=== PATIENT | male | born 1945 | race Caucasian/White ===

== ENCOUNTER 2019-08-19 14:44 | Inpatient (IN) | payer OTHER, MEDICARE ==
[~2019-08-19] VITALS: Ht 177.8 cm; Wt 101.8 kg
[~2019-08-19 14:44] MED LIST: ACET500 PO; ALBU90OI INH; ASPI325 PO; Aspir-Trin325 MG PO; BENZ100A PO; BUDE200IP INH; BUSP10 PO; CALCAVITD PO; CYAN1000; CYAN500 SL; DOC250 PO; ESOM20 PO; FEXO180; FEXO180 PO; FISH1000 PO; FLUO10 PO; FLUO20 PO; FLUT.05NI; GLYB5; GUAI600T33 PO; LEVFLO500 PO; LISI5; MOMENI; MULVITMINF; MULVITMINF PO; OSTERA TABLET1 EACH PO; OXYC5 PO; PHENO60; TRAZ100; TRAZ100 PO
[2019-08-19 15:17] LABS: BASOPHILS ABSOLUTE AUTO 0.05 K/mm3 (0.00-0.23); BASOPHILS PERCENT AUTO 0 % (0-2); EOSINOPHILS ABSOLUTE AUTO 0.13 K/mm3 (0.00-0.68); EOSINOPHILS PERCENT AUTO 1 % (0-6); Hematocrit 40.4 % (37.0-53.0); Hemoglobin 12.6 g/dL (13.5-17.5); IMMATURE GRAN ABSOLUTE AUTO 0.08 K/mm3 (0.00-0.10); IMMATURE GRAN PERCENT AUTO 1 % (0-1); LYMPHOCYTES PERCENT AUTO 14 % (21-46); MONOCYTES ABSOLUTE AUTO 1.15 K/mm3 (0.16-1.47); MONOCYTES PERCENT AUTO 10 % (4-13); Mean Corpuscular HGB 29.6 pg (26.0-34.0); Mean Corpuscular HGB Conc 31.2 g/dL (31.5-36.5); Mean Corpuscular Volume 95 fL (80-100); Mean Platelet Volume 9.3 fL (9.1-12.4); NEUTROPHILS ABSOLUTE AUTO 9.04 K/mm3 (1.96-9.15); NEUTROPHILS PERCENT AUTO 74 % (41-73); Platelet Count 400 K/mm3 (150-400); RDW Coefficient Variation 12.6 % (11.7-14.2); RDW Standard Deviation 44.2 fL (35.1-46.3); Red Blood Cell Count 4.25 M/mm3 (4.30-5.90); White Blood Cell Count 12.15 K/mm3 (4.00-11.30)
[2019-08-19 15:23] LABS: Source, Urine Clean Catch
[2019-08-19 15:30] LABS: Bilirubin, Urine Neg (Neg); Blood, Urine 1+ (Neg); Glucose Qualitative, Urine Neg (Neg); Ketones, Urine Neg (Neg); Leukocyte Esterase, Urine 1+ (Neg); Nitrite, Urine Neg (Neg); Protein, Urine 2+ (Neg); Urobilinogen, Urine NORM (Normal)
[2019-08-19 15:33] LABS: Alanine Aminotransfer (ALT/SGP 22 U/L (12-78); Albumin, Blood 2.9 g/dL (3.4-5.0); Albumin/Globulin Ratio 0.6 (0.8-1.8); Alk Phos 113 U/L (50-136); Anion Gap 8 mmol/L (6-16); Aspartate Aminotrans (AST/SGOT 25 U/L (12-37); Bilirubin, Total 0.3 mg/dL (0.1-1.0); Blood Urea Nitrogen 12 mg/dL (8-24); Bun/Creatinine Ratio 9.8 (12.0-20.0); CO2, Blood 23 mmol/L (21-32); Calcium, Blood 9.3 mg/dL (8.5-10.1); Chloride, Blood 103 mmol/L (98-108); Creatinine, Blood 1.23 mg/dL (0.60-1.20); Glomerular Filtration Rate >60 (60-); Glucose, Blood 101 mg/dL (70-99); Potassium, Blood 4.6 mmol/L (3.5-5.5); Sodium, Blood 134 mmol/L (136-145); Total Protein, Blood 7.9 g/dL (6.4-8.2)
[2019-08-19 15:35] LABS: Appearance, Urine Clear (Clear); Color, Urine Yellow (P-Yellow)
[2019-08-19 15:36] LABS: Bacteria Few /hpf; Calcium Oxalate Crystals Few /hpf; Red Blood Cells, Urine 0-2 /hpf (0-2); Squamous Epithelial Cells Few /hpf (Few)
[2019-08-19] MEDS ORDERED: BACTRIM DS TAB1 EACH PO (16:11)
[2019-08-19] MEDS ORDERED: CEFU500T30 PO (16:11)
[2019-08-19] MEDS ORDERED: Lipitor20 MG PO (16:14)
[2019-08-19] MEDS ORDERED: ELIQUIS5 M2 PO (16:14)
[2019-08-19] MEDS ORDERED: Vitamin D2000 UNIT PO (16:15)
[2019-08-19] MEDS ORDERED: ESOM20 PO (16:15)
[2019-08-19] MEDS ORDERED: B-122500 MCG SL (16:15)
[2019-08-19] MEDS ORDERED: Buspirone HCl15 MG PO (16:15)
[2019-08-19] MEDS ORDERED: Prozac20 MG PO (16:16)
[2019-08-19] MEDS ORDERED: Flonase 0.05% N16 GM (16:16)
[2019-08-19] MEDS ORDERED: FERSU300 PO (16:16)
[2019-08-19] MEDS ORDERED: METO25 PO (16:16)
[2019-08-19] MEDS ORDERED: MULTIPLE VITAM1 EACH PO (16:17)
[2019-08-19] MEDS ORDERED: ALBU90OI INH (16:17)
[2019-08-19] MEDS ORDERED: Nortriptyline H10 MG PO (16:17)
[2019-08-19] MEDS ORDERED: TRAZ100 PO (16:17)
[2019-08-19] MEDS ORDERED: HYDR1TAB94 PO (16:18)
[2019-08-19] MEDS ORDERED: ALLEGRA ALLERG180 MG PO (16:18)
[2019-08-19] MEDS ORDERED: Fiorinal Capsu1 EACH PO (16:18)
[2019-08-19] MEDS ORDERED: Hydrocortiso453.6 G1 (18:14)
[2019-08-20 05:03] LABS: BASOPHILS ABSOLUTE AUTO 0.04 K/mm3 (0.00-0.23); BASOPHILS PERCENT AUTO 0 % (0-2); EOSINOPHILS ABSOLUTE AUTO 0.24 K/mm3 (0.00-0.68); EOSINOPHILS PERCENT AUTO 2 % (0-6); Hematocrit 36.8 % (37.0-53.0); Hemoglobin 11.3 g/dL (13.5-17.5); IMMATURE GRAN ABSOLUTE AUTO 0.03 K/mm3 (0.00-0.10); IMMATURE GRAN PERCENT AUTO 0 % (0-1); LYMPHOCYTES ABSOLUTE AUTO 1.53 K/mm3 (0.84-5.20); LYMPHOCYTES PERCENT AUTO 16 % (21-46); MONOCYTES ABSOLUTE AUTO 1.02 K/mm3 (0.16-1.47); MONOCYTES PERCENT AUTO 10 % (4-13); Mean Corpuscular HGB 30.8 pg (26.0-34.0); Mean Corpuscular HGB Conc 30.7 g/dL (31.5-36.5); Mean Platelet Volume 9.7 fL (9.1-12.4); NEUTROPHILS ABSOLUTE AUTO 7.04 K/mm3 (1.96-9.15); NEUTROPHILS PERCENT AUTO 71 % (41-73); Platelet Count 306 K/mm3 (150-400); RDW Coefficient Variation 12.6 % (11.7-14.2); RDW Standard Deviation 46.9 fL (35.1-46.3); Red Blood Cell Count 3.67 M/mm3 (4.30-5.90)
[2019-08-20 05:04] LABS: Mean Corpuscular Volume 100 fL (80-100)
--- NOTE | 2019-08-20 05:10 | NUR ---
ASSISTANT CENTER DIRECTOR SUMMARY NEW ADMIT FROM THE ED TONIGHT. PT AAOX4 AND INDEPENDENT IN ROOM. ADMITTED FOR INFECTED SURGICAL INCISION. INCISION ALONG WAISTLINE FROM HIP TO HIP. RED AND SWOLLEN MAINLY ON EACH END OF INCISION ON THE HIPS. PHOTOS PLACED IN CHART. PT FINISHED SEPSIS NS BOLUSES AND IS NOW ON NS AT 100 ML/HR WELL CEFEPIME AND VANCO IV. PT NPO SINCE MIDNIGHT IN PREP FOR POSSIBLE PROCEDURE LATER TODAY BY DR JOSEPH. TELEMETRY IN PLACE, AFIB WITH RATE BETWEEN 90-100'S. PT HAS HX OF AFIB AND IS ON ELIQUIS. VSS, WILL CONTINUE TO MONITOR.
[2019-08-20 05:24] LABS: Percent Saturation 16.8 % (20.0-50.0)
[2019-08-20 05:26] LABS: Alanine Aminotransfer (ALT/SGP 24 U/L (12-78); Albumin, Blood 2.4 g/dL (3.4-5.0); Albumin/Globulin Ratio 0.6 (0.8-1.8); Alk Phos 89 U/L (50-136); Anion Gap 6 mmol/L (6-16); Aspartate Aminotrans (AST/SGOT 26 U/L (12-37); Bilirubin, Total 0.3 mg/dL (0.1-1.0); Blood Urea Nitrogen 10 mg/dL (8-24); Bun/Creatinine Ratio 9.9 (12.0-20.0); CO2, Blood 20 mmol/L (21-32); Calcium, Blood 8.4 mg/dL (8.5-10.1); Chloride, Blood 111 mmol/L (98-108); Creatinine, Blood 1.01 mg/dL (0.60-1.20); Globulin, Blood 4.2 g/dL (2.2-4.0); Glomerular Filtration Rate >60 (60-); Glucose, Blood 76 mg/dL (70-99); Magnesium, Blood 2.3 mg/dL (1.6-2.4); Potassium, Blood 4.7 mmol/L (3.5-5.5); Sodium, Blood 137 mmol/L (136-145); Total Protein, Blood 6.6 g/dL (6.4-8.2)
--- NOTE | 2019-08-20 18:04 | NUR ---
SHIFT SUMMARY INDEPENDENT IN ROOM. HAS DENIED ANY PAIN OR DISCOMFORT. SIDES OF HIPS AT INCISIONS AREAS RED AND WARM TO TOUCH. EATING WITH NO PROBLEM. TO BE NPO AFTER MIDNOC IN CASE A PROCEDURE NEEDS TO BE COMPLETED.
[2019-08-21 04:59] LABS: BASOPHILS ABSOLUTE AUTO 0.07 K/mm3 (0.00-0.23); BASOPHILS PERCENT AUTO 1 % (0-2); EOSINOPHILS ABSOLUTE AUTO 0.33 K/mm3 (0.00-0.68); EOSINOPHILS PERCENT AUTO 4 % (0-6); Hematocrit 35.7 % (37.0-53.0); IMMATURE GRAN ABSOLUTE AUTO 0.04 K/mm3 (0.00-0.10); IMMATURE GRAN PERCENT AUTO 1 % (0-1); LYMPHOCYTES ABSOLUTE AUTO 1.64 K/mm3 (0.84-5.20); LYMPHOCYTES PERCENT AUTO 19 % (21-46); MONOCYTES ABSOLUTE AUTO 0.96 K/mm3 (0.16-1.47); MONOCYTES PERCENT AUTO 11 % (4-13); Mean Corpuscular HGB Conc 30.8 g/dL (31.5-36.5); Mean Platelet Volume 9.4 fL (9.1-12.4); NEUTROPHILS ABSOLUTE AUTO 5.69 K/mm3 (1.96-9.15); NEUTROPHILS PERCENT AUTO 65 % (41-73); Platelet Count 294 K/mm3 (150-400); RDW Coefficient Variation 12.6 % (11.7-14.2); RDW Standard Deviation 45.1 fL (35.1-46.3); Red Blood Cell Count 3.67 M/mm3 (4.30-5.90); White Blood Cell Count 8.73 K/mm3 (4.00-11.30)
[2019-08-21 05:00] LABS: Mean Corpuscular Volume 97 fL (80-100)
--- NOTE | 2019-08-21 05:16 | NUR ---
ASSISTANT STORE MANAGER TRAINEE SUMMARY NO ACUTE CHANGES THIS SHIFT. PT AAOX4, INDEPENDENT AND VERY PLEASANT. REDNESS AND SWELLING OF ABD INCISION SEEM MILDLY IMPROVED COMPARED TO YESTERDAY WHEN PT WAS ADMITTED. PT DENIES PAIN IN AREA AND HAS NOT NEEDED PAIN MEDS. CONTINUING ON IV FLUIDS AND ABX. NPO SINCE MIDNIGHT DUE TO POSSIBILITY OF PROCEDURE LATER TODAY WITH DR LEDBETTER. VSS, WILL CONTINUE TO MONITOR.
[2019-08-21 05:18] LABS: Anion Gap 8 mmol/L (6-16); Blood Urea Nitrogen 10 mg/dL (8-24); Bun/Creatinine Ratio 9.9 (12.0-20.0); CO2, Blood 20 mmol/L (21-32); Calcium, Blood 8.5 mg/dL (8.5-10.1); Chloride, Blood 111 mmol/L (98-108); Creatinine, Blood 1.01 mg/dL (0.60-1.20); Glomerular Filtration Rate >60 (60-); Glucose, Blood 80 mg/dL (70-99); Potassium, Blood 4.3 mmol/L (3.5-5.5); Sodium, Blood 139 mmol/L (136-145); Vancomycin, Trough 18.4 ug/mL (5.0-10.0)
--- NOTE | 2019-08-21 08:53 | NUR ---
PATIENT DID NOT EAT BREAKFAST THIS SHIFT DUE TO BEING NPO AT THIS TIME FOR A POSSIBLE PROCEDURE. RN NOTIFIED.
--- NOTE | 2019-08-21 11:58 | NUR ---
PATIENT DID NOT EAT LUNCH THIS SHIFT DUE TO BEING NPO AT THIS TIME FOR A POSSIBLE PROCEDURE.
--- NOTE | 2019-08-21 17:05 | NUR ---
PT A/O THROUGHOUT THIS SHIFT. PT HAS BEEN CALM AND COOPERATIVE THROUGHOUT THIS SHIFT. PT DENIES PAIN AT THIS TIME. PT HAS BEEN SITTING UP IN BED THROUGH MOST OF THIS SHIFT. PT HAD A VISITOR THIS AFTERNOON. PT'S DIET ADVANCED THIS AFTERNOON, PT ATE LUNCH WITHOUT ISSUE. DR. LEDBETTER IN THE ROOM THIS AFTERNOON TO SPEAK WITH THE PT. TOLD THE PT THAT HE DOES NOT THINK THAT SURGERY IS NEEDED AT THIS TIME. PT ACKNOWLEDGED UNDERSTANDING OF THIS. PT CURRENTLY UP IN BED PLAYING [employer] ([employer]) ON HIS LAPTOP.
--- NOTE | 2019-08-22 04:33 | NUR ---
74 year old MAle with hx of abdominoplasty with old drain sites with redness warmth and edema. Continues to have no drainage and anterior incisions well healed. Bilateral lateral sites have some improvement on IV antibiotics. Denies need for pain meds. PT is [employer] retired. Talkative cooperative.
[2019-08-22 15:42] LABS: Vancomycin, Trough 12.9 ug/mL (5.0-10.0)
--- NOTE | 2019-08-22 16:36 | NUR ---
SHIFT SUMMARY PT HAS CELLULITIS IN ABD INCISION, NO SIGNS OF SYSTEMIC INFECTION. LAB DRAWING VANCO TROUGHS. IV ANTIBIOTICS GIVEN ORDERED. PT IS INDEPENDENT IN THE ROOM AND COOPERATIVE WITH CARE. PT ATE LITTLE LUNCH BUT STATES THAT HE FEELS MUCH IMPROVED.
[2019-08-23 05:06] LABS: BASOPHILS ABSOLUTE AUTO 0.07 K/mm3 (0.00-0.23); BASOPHILS PERCENT AUTO 1 % (0-2); EOSINOPHILS ABSOLUTE AUTO 0.33 K/mm3 (0.00-0.68); EOSINOPHILS PERCENT AUTO 3 % (0-6); Hematocrit 32.7 % (37.0-53.0); Hemoglobin 10.2 g/dL (13.5-17.5); IMMATURE GRAN ABSOLUTE AUTO 0.04 K/mm3 (0.00-0.10); IMMATURE GRAN PERCENT AUTO 0 % (0-1); LYMPHOCYTES ABSOLUTE AUTO 1.35 K/mm3 (0.84-5.20); LYMPHOCYTES PERCENT AUTO 13 % (21-46); MONOCYTES ABSOLUTE AUTO 0.91 K/mm3 (0.16-1.47); MONOCYTES PERCENT AUTO 9 % (4-13); Mean Corpuscular HGB 29.9 pg (26.0-34.0); Mean Corpuscular HGB Conc 31.2 g/dL (31.5-36.5); Mean Corpuscular Volume 96 fL (80-100); Mean Platelet Volume 9.5 fL (9.1-12.4); NEUTROPHILS PERCENT AUTO 73 % (41-73); Platelet Count 312 K/mm3 (150-400); RDW Coefficient Variation 12.4 % (11.7-14.2); RDW Standard Deviation 43.9 fL (35.1-46.3); Red Blood Cell Count 3.41 M/mm3 (4.30-5.90)
[2019-08-23 05:30] LABS: Anion Gap 8 mmol/L (6-16); Blood Urea Nitrogen 12 mg/dL (8-24); Bun/Creatinine Ratio 14.8 (12.0-20.0); CO2, Blood 20 mmol/L (21-32); Calcium, Blood 8.7 mg/dL (8.5-10.1); Chloride, Blood 111 mmol/L (98-108); Creatinine, Blood 0.81 mg/dL (0.60-1.20); Glomerular Filtration Rate >60 (60-); Glucose, Blood 98 mg/dL (70-99); Sodium, Blood 139 mmol/L (136-145)
--- NOTE | 2019-08-23 05:42 | NUR ---
PT had low grade temp x 1 . Denies need for pain meds. Tolerating diet and activity. PT on IV antibiotics vanco per pharmacy and on lovenox BID. Up indep in room.Continies with several red, hot areas lateral drain sites from abdominoplasty. He had them removed mid June after Abdominoplasty May 16.
--- NOTE | 2019-08-23 15:44 | NUR ---
SHIFT SUMMARY PT'S VITAL SIGNS GENERATED VEWS SCORES DURING PREVIOUS NURSING SHIFT, BUT WERE AT THE PT'S BASELINE @ 0730 AM. IV ANTIBIOTICS GIVEN PRESCRIBED. DR IS BEING CAUTIOUS TO DC ON ORAL ANTIBIOTICS THE PT WAS PREVIOUSLY ON THOSE TO LITTLE EFFECT. NO NEW COMPLAINTS THIS SHIFT.
--- NOTE | 2019-08-24 05:19 | NUR ---
SHIFT SUMMARY- PT. A&O, PLEAASANT AND COOPERATIVE WITH CARE. PT. IS INDEP IN ROOM. ASLEEP T/O THE SHIFT. NO APPARENT DISTRESS NOTED. IV ABX'S GIVEN PER EMAR. PT. TOLERATED WELL. DENIED ANY NEEDS T/O THE SHIFT AND NO C/O PAIN OR DISCOMFORT. CALL LIGHT WITHIN REACH AND SIDE RAILS UP X2. WILL CONT TO MONITOR.
[2019-08-24 05:45] LABS: BASOPHILS ABSOLUTE AUTO 0.08 K/mm3 (0.00-0.23); BASOPHILS PERCENT AUTO 1 % (0-2); EOSINOPHILS ABSOLUTE AUTO 0.41 K/mm3 (0.00-0.68); EOSINOPHILS PERCENT AUTO 4 % (0-6); Hematocrit 33.4 % (37.0-53.0); Hemoglobin 10.6 g/dL (13.5-17.5); IMMATURE GRAN ABSOLUTE AUTO 0.06 K/mm3 (0.00-0.10); IMMATURE GRAN PERCENT AUTO 1 % (0-1); LYMPHOCYTES ABSOLUTE AUTO 1.54 K/mm3 (0.84-5.20); LYMPHOCYTES PERCENT AUTO 16 % (21-46); MONOCYTES ABSOLUTE AUTO 0.99 K/mm3 (0.16-1.47); MONOCYTES PERCENT AUTO 10 % (4-13); Mean Corpuscular HGB 30.4 pg (26.0-34.0); Mean Corpuscular HGB Conc 31.7 g/dL (31.5-36.5); Mean Corpuscular Volume 96 fL (80-100); Mean Platelet Volume 9.6 fL (9.1-12.4); NEUTROPHILS ABSOLUTE AUTO 6.88 K/mm3 (1.96-9.15); NEUTROPHILS PERCENT AUTO 69 % (41-73); Platelet Count 325 K/mm3 (150-400); RDW Coefficient Variation 12.4 % (11.7-14.2); RDW Standard Deviation 43.1 fL (35.1-46.3); Red Blood Cell Count 3.49 M/mm3 (4.30-5.90); White Blood Cell Count 9.96 K/mm3 (4.00-11.30)
[2019-08-24 06:06] LABS: Anion Gap 8 mmol/L (6-16); Blood Urea Nitrogen 11 mg/dL (8-24); Bun/Creatinine Ratio 12.1 (12.0-20.0); CO2, Blood 22 mmol/L (21-32); Calcium, Blood 8.8 mg/dL (8.5-10.1); Chloride, Blood 108 mmol/L (98-108); Creatinine, Blood 0.91 mg/dL (0.60-1.20); Glomerular Filtration Rate >60 (60-); Glucose, Blood 90 mg/dL (70-99); Potassium, Blood 3.9 mmol/L (3.5-5.5); Sodium, Blood 138 mmol/L (136-145)
[2019-08-24] MEDS ORDERED: ACET325 PO (11:46)
[2019-08-24] MEDS ORDERED: Florastor250 MG PO (11:47)
[2019-08-24] MEDS ORDERED: FLONASE ALLERG9.9 ML (11:47)
[2019-08-24] MEDS ORDERED: CLIN300 PO (11:47)
--- NOTE | 2019-08-24 14:23 | NUR ---
PT LEFT UNIT VIA WHEEL CHAIR AT 1345 WITH FRIEND. DISCHARGE INSTRUCTIONS REVIEWED. MEDICATIONS FAXED TO PHARMACY. NO QUESTIONS AT THIS TIME
== END 2019-08-24 13:46 | disposition home or self-care (01) | DRG 872 ==
LOC: ER 14:44 → MEDS 18:26 → ENPENDDIS 08-24 11:19 → MEDS 08-24 13:46
PROVIDERS: Internal Medicine Endocrinology, Diabetes & Metabolism; Physician Assistant; Surgery; ADMIT Internal Medicine
DX: A41.9 Sepsis, unspecified organism (principal); L76.34 Postprocedural seroma of skin and subcutaneous tissue following other procedure; L03.311 Cellulitis of abdominal wall; I50.30 Unspecified diastolic (congestive) heart failure; I48.91 Unspecified atrial fibrillation; Z79.01 Long term (current) use of anticoagulants; E78.5 Hyperlipidemia, unspecified; F32.9 Major depressive disorder, single episode, unspecified
CPT/HCPCS: 36415; 74176; 80048; 80053; 80202; 81001; 82728; 83540; 83550; 83605; 83690; 83735; 83880; 85025; 87040; 87086; 94762; 96361; 96365; 96366; 96375; 99285-25; C9113; J0692; J0713; J1650; J2405; J3370; J7030; J7050

== ENCOUNTER 2021-07-24 05:39 | Day surgery (SDC) | payer MEDICARE, OTHER ==
[~2021-07-24] VITALS: Ht 177.8 cm; Wt 101.8 kg
[~2021-07-24 05:39] MED LIST changes: +ACET325 PO; +ALLEGRA ALLERG180 MG PO; +B-12 PO; +BACTRIM DS TAB1 EACH PO; +Buspirone HCl15 MG PO; +CEFU500T30 PO; +CLIN300 PO; +ELIQUIS5 M2 PO; +FERSU300 PO; +FLONASE ALLERG9.9 ML; +Fiorinal Capsu1 EACH PO; +Flonase 0.05% N16 GM; +Florastor250 MG PO; +HYDR1TAB94 PO; +Hydrocortiso453.6 G1; +Lipitor20 MG PO; +METO25 PO; +MULTIPLE VITAM1 EACH PO; +Nortriptyline H10 MG PO; +Prozac20 MG PO; +Vitamin D2000 UNIT PO; +XYZAL5 MG PO
--- NOTE | 2021-07-24 06:42 | NUR ---
PT AMBULATES TO [facility] c [facility]. History, Chart, Medications and Allergies reviewed before start of procedure. Lungs clear T/O to Auscultation. Patient confirms NPO status and agrees with scheduled surgery. Patient reports completing Chlorhexadine shower X2 prior to admission to hospital. PT REPORTS 5 DAYS OF SHOWERS AND NASAL OINT FOR + MRSA. + VOID.
--- NOTE | 2021-07-24 06:51 | NUR ---
TOOK OVER CARE OF PATIENT, AFTER REPORT WAS RECEIVED.
--- NOTE | 2021-07-24 17:11 | NUR ---
SHIFT SUMMARY PATIENT NEW ADMIT POST OP LEFT TKA. WALKED IN HALLS WITH PHYSICAL THERAPY. PAIN CONTROLLED WITH PO PAIN MEDS. TOLERATING REGULAR DIET AND FLUIDS. SALINE LOCKED. VOIDING WELL. AQUACEL IN PLACE TO LEFT KNEE UNDER COMPRESSION STOCKING AND POLAR PACK. POST OP VITALS STABLE. ALERT AND ORIENTED. LIKELY DISCHARGE HOME TOMORROW. WILL REPORT TO FINANCE VICE PRESIDENT RN.
[2021-07-25 04:44] LABS: BASOPHILS ABSOLUTE AUTO 0.02 K/mm3 (0.00-0.23); BASOPHILS PERCENT AUTO 0 % (0-2); EOSINOPHILS ABSOLUTE AUTO 0.23 K/mm3 (0.00-0.68); EOSINOPHILS PERCENT AUTO 2 % (0-6); Hemoglobin 8.5 g/dL (13.5-17.5); IMMATURE GRAN ABSOLUTE AUTO 0.04 K/mm3 (0.00-0.10); IMMATURE GRAN PERCENT AUTO 0 % (0-1); LYMPHOCYTES ABSOLUTE AUTO 1.92 K/mm3 (0.84-5.20); LYMPHOCYTES PERCENT AUTO 20 % (21-46); MONOCYTES ABSOLUTE AUTO 0.76 K/mm3 (0.16-1.47); MONOCYTES PERCENT AUTO 8 % (4-13); Mean Corpuscular HGB Conc 32.7 g/dL (31.5-36.5); Mean Corpuscular Volume 95 fL (80-100); NEUTROPHILS ABSOLUTE AUTO 6.65 K/mm3 (1.96-9.15); NEUTROPHILS PERCENT AUTO 69 % (41-73); Platelet Count 203 K/mm3 (150-400); RDW Coefficient Variation 13.2 % (11.7-14.2); RDW Standard Deviation 46.1 fL (35.1-46.3); Red Blood Cell Count 2.74 M/mm3 (4.30-5.90); White Blood Cell Count 9.62 K/mm3 (4.00-11.30)
[2021-07-25 05:06] LABS: Calcium, Blood 7.9 mg/dL (8.5-10.1); Creatinine, Blood 1.2 mg/dL (0.60-1.20); Magnesium, Blood 2.3 mg/dL (1.6-2.4); Potassium, Blood 4.4 mmol/L (3.5-5.5)
--- NOTE | 2021-07-25 05:28 | NUR ---
SHIFT SUMMARY POD1 L TKA WITH DR. ABRAMS. AOX4. VSS. PAIN IS VERY MINIMAL. PAIN MANAGED WITH TORADOL AND TYLENOL. L KNEE WITH AQUACEL DRESSING, CDI AND POLAR PACK IN PLACED, RIGOBERTO HOSE AND SCD'S. PT DENIES ANY N/T. SALINE LOCKED. ADMINSITERED ABX LAST NIGHT. TOLERATING PO INTAKE, DENIES NAUSEA AND VOMITING. AMBULATES IN THE BATHROOM. VOIDS WITHOUT DIFFICULTY. OLD IV ON R FOREARM INFILTRATED LAST NIGHT, NEW IV PLACED ON LEFT AC. CALL LIGHT WITHIN REACH. WILL PROVIDE REPORT TO ONCOMING NURSE.
[2021-07-25] MEDS ORDERED: ACET500 PO (07:29)
[2021-07-25] MEDS ORDERED: OXYC5 PO (07:31)
--- NOTE | 2021-07-25 10:30 | NUR ---
PENDING DC PT HAS CLEARED THERAPY. PAIN WELL CONTROLLED. EATING, DRINKING, & VOIDING WELL. DRSGS, SCRIPT, & POLAR PACK SUPPLIED TO PT. WAITING ON FRIEND FOR TRANSPORTATION.
--- NOTE | 2021-07-25 11:25 | NUR ---
DISCHARGE ESCORTED OUT TO [facility] VIA W/C w/ BELONGINGS.
== END 2021-07-25 11:15 | disposition home or self-care (01) ==
LOC: ORSCMMR 05:39 → ORD 07:30 → ORSCMMR 07:30 → SURS 10:03 → ORSCMMR 07-25 11:15
PROVIDERS: Orthopaedic Surgery
PROC: 8E0Y0CZ Robotic Assisted Procedure of Lower Extremity, Open Approach (ICD-10-PCS; principal; 2021-07-24 07:30)
PROC: 0SRD0JA Replacement of Left Knee Joint with Synthetic Substitute, Uncemented, Open Approach (ICD-10-PCS; principal; 2021-07-24 07:30)
DX: M17.12 Unilateral primary osteoarthritis, left knee (principal); I48.91 Unspecified atrial fibrillation; Z79.01 Long term (current) use of anticoagulants; K21.9 Gastro-esophageal reflux disease without esophagitis; G40.909 Epilepsy, unspecified, not intractable, without status epilepticus; Z79.899 Other long term (current) drug therapy
CPT/HCPCS: 27447; S2900; 36415; 73560-LT; 80048; 83735; 85025; 97110; 97116; 97162; 97530; A9270; C1776; J0171; J0690; J0735; J1100; J1885; J2250; J2370; J2405; J2704; J2795; J3010; J7120

== ENCOUNTER → 2024-04-16 | Outpatient (CLI) | payer MEDICARE, OTHER ==
[2024-04-16 12:33] LABS: BASOPHILS ABSOLUTE AUTO 0.06 K/mm3 (0.00-0.23); BASOPHILS PERCENT AUTO 0 % (0-2); EOSINOPHILS ABSOLUTE AUTO 0.08 K/mm3 (0.00-0.68); EOSINOPHILS PERCENT AUTO 1 % (0-6); Hematocrit 37.5 % (37.0-53.0); Hemoglobin 12.4 g/dL (13.5-17.5); IMMATURE GRAN ABSOLUTE AUTO 0.05 K/mm3 (0.00-0.10); IMMATURE GRAN PERCENT AUTO 0 % (0-1); LYMPHOCYTES ABSOLUTE AUTO 0.58 K/mm3 (0.84-5.20); LYMPHOCYTES PERCENT AUTO 4 % (21-46); MONOCYTES ABSOLUTE AUTO 0.69 K/mm3 (0.16-1.47); MONOCYTES PERCENT AUTO 5 % (4-13); Mean Corpuscular HGB 30.8 pg (26.0-34.0); Mean Corpuscular HGB Conc 33.1 g/dL (31.5-36.5); Mean Corpuscular Volume 93 fL (80-100); Mean Platelet Volume 10.1 fL (9.1-12.4); NEUTROPHILS ABSOLUTE AUTO 12.83 K/mm3 (1.96-9.15); NEUTROPHILS PERCENT AUTO 90 % (41-73); Platelet Count 237 K/mm3 (150-400); RDW Coefficient Variation 13.6 % (11.7-14.2); RDW Standard Deviation 46.1 fL (35.1-46.3); Red Blood Cell Count 4.02 M/mm3 (4.30-5.90); White Blood Cell Count 14.29 K/mm3 (4.00-11.30)
[2024-04-16 12:39] LABS: Bun/Creatinine Ratio 12.1 (12.0-20.0); Creatinine, Blood 1.4 mg/dL (0.60-1.20); Potassium, Blood 4.1 mmol/L (3.5-5.5)
== END ==
LOC: LAB SHORT 12:28
PROVIDERS: Chiropractor
DX: R07.89 Other chest pain (principal)
CPT/HCPCS: 80048; 84484; 85025